=== PATIENT | female | born 1990 | race Caucasian/White ===

== ENCOUNTER 2018-01-24 13:20 | Inpatient (IN) | payer MEDICAID ==
[2018-01-24] MEDS ORDERED: Oxytocin 30 units/LR 500ML 30 U/500 ML BAG IV SCH (15:15)
[2018-01-24] MEDS: Lactated Ringer's 1,000 ML IV SCH ×3 (15:30→17:28)
[2018-01-24 15:45] LABS: BASO % 0.1 % (0.0-2.0); EOS % 0.4 % (0.0-4.0); LYMPH # 1.6 K/uL (1.0-4.3); LYMPH % 17.9 % (20.0-40.0); MEAN CORPUSCULAR HEMOGLOBIN 29.8 pg (27.0-31.0); MEAN CORPUSCULAR HGB CONC 33.5 g/dL (33.0-37.0); MEAN PLATELET VOLUME 8.3 fl (7.2-11.7); MONO # 0.6 K/uL (0.0-0.8); MONO % 6.4 % (0.0-10.0); NEUT # 6.5 K/uL (1.8-7.0); NEUT % 75.2 % (50.0-75.0); RBC 3.36 Mil/uL (3.80-5.20); RED CELL DISTRIBUTION WIDTH 13.4 % (11.5-14.5); WHITE BLOOD COUNT 8.7 K/uL (4.8-10.8)
[2018-01-24 16:20] LABS: BARBITURATES, UR NEGATIVE (NEGATIVE); BENZODIAZEPINES, UR NEGATIVE (NEGATIVE); OPIATES, UR NEGATIVE (NEGATIVE); PHENCYCLIDINE, UR NEGATIVE (NEGATIVE)
[2018-01-24] MEDS ORDERED: Fentanyl/Bupivacaine HCl 250 ML EPI ONE (17:09)
[2018-01-24] MEDS ORDERED: Lidocaine 1% Inj (20ml) ONE (17:16)
--- NOTE | 2018-01-24 18:39 | OBHP ---
Datetime: 01/24/2018 15:00 IP Adm Impression: Term, intrauterine IP Admit Plan: Admit to unit; Initiate labor protocol Pelvic Type - PN: Adequate Extremities - PN: Normal Abdomen - PN: Normal Back - PN: Normal Breast - PN: Not Done Lungs - PN: Normal Heart - PN: Normal Thyroid - PN: Not Done Neurologic - PN: Normal HEENT - PN: Normal General - PN: Normal FHR - Baseline A Provider: 130 Pool Provider: Negative Nitrazine Provider: Positive Ferning Provider: Negative EGA AdmitDate IP: 37.3 Vital Signs Provider: Reviewed; Within Normal Limits IP Indication for Induction: Not Applicable IP Chief Complaint: Uterine contractions; Suspected ruptured membranes NICHD Variability Prov Fetus A: Moderate 6-25bpm NICHD Accel Fetus A IP Provider: 15X15 FHR Category Provider Fetus A: Category I NICHD Decel Fetus A IP Provider: None Dilatation, Provider: 5 Effacement, Provider: 70 Station, Provider: -3 Genitourinary Exam: Normal DTRs - PN: Normal Datetime: 01/24/2018 14:30 Admit Comment, IP Provider: 27 yo EGA 37.3 confirmed by first US (stated per patient) presen ts with CTX and suspected ROM. She reports diffuse abdominal pain starting last night and radiating t o suprapubic area. She also reports this AM clear fluid per vagina and occasional dark bloody disharg e per vagina. Reports: FM, slight frontal headache; Denies: current vaginal bleed Last sexual activiy: 2 days ago ROS: Denies: blurred vision, CP/SOB/N/V/D/C, dysuria OB: Dr. Adames: reports short cervix; otherwise uncomplicated ([phone]) obhx: 2010 37 wks F uncomplicated; 2015 27 wks F PPROM pmhx: none famhx: none soc: Denies: smoking, etoh, illicit drugs surg: none Allergies: amoxicillin: rash: discovered greater than 5 years ago Meds: PNV, Fe Bedside US: vertex Gen: AAOx3; in acute distress with each contraction Cardiac: S1S2 no murmur Lungs: CTA bilaterally, no murmurs Abdomen: gravid, active bowel sounds CTA nontender 27 yo EGA 37.3 -Called Dr. Adames's office and office personnel confirmed [place]ET[place] of 02/11/2018; requested records. rec ords released signed. -Pt reports GBS negative -Admit to L_D for progression of labor -Labs: CBC, TS, HIV, RPR -IVF: 1 L bolus -Anesthesia consult; Pt requested epidural Case d/w Dr. Luciano Owens MD PGY1 OB Hospitalist Addendum: Pt seen and examined by me. Agree w/ above. 27 yo at 37+3 wks i n labor. On exam: Spec: frothy d/c, + nitrazine, fern neg. VE 4-5/70/-3 w/ BBOW at 3 pm. Pt admi tted to L_D. FHT reassuring. GBS positive, receiving vancomycin for prophylaxis. (ES)
--- NOTE | 2018-01-24 18:43 | OBADHP ---
Datetime: 01/24/2018 15:00 Admit Comment, IP Provider: 27 yo EGA 37.3 confirmed by first US presents with CTX and suspe cted ROM. She reports diffuse abdominal pain starting last night and radiating to suprapubic area. Sh e also reports this AM clear fluid per vagina and occasional dark bloody disharge per vagina. Reports: FM, slight frontal headache; Denies: current vaginal bleed Last sexual activiy: 2 days ago ROS: Denies: blurred vision, CP/SOB/N/V/D/C, dysuria OB: Dr. Adames: reports short cervix; otherwise uncomplicated ([phone]) obhx: 2010 37 wks F uncomplicated; 2015 27 wks F PPROM pmhx: none famhx: none soc: Denies: smoking, etoh, illicit drugs surg: none Allergies: amoxicillin: rash: discovered greater than 5 years ago Meds: PNV, Fe Bedside US: vertex Gen: AAOx3; in acute distress with each contraction Cardiac: S1S2 no murmur Lungs: CTA bilaterally, no murmurs Abdomen: gravid, active bowel sounds CTA nontender HIV: NEG RPR: NEG; HBSAG: NEG; RUBELLA: NOT IMMUNE; GC/C: NEG; 27 yo EGA 37.3 -Called Dr. Adames's office and office personnel confirmed DEMET[place] of 02/11/2018; requested records. rec ords released signed. -GBS positive per records: Amoxicillin allergy; started Vancomycin 1 gm q12hr -Admit to L_D for progression of labor -Labs: CBC, TS, HIV, RPR (records were not available on admission) -IVF: 2 L bolus -Anesthesia consult; Pt requested epidural -To offer MMR . Case d/w Dr. Luciano Owens MD PGY1 OB Hospitalist Addendum: Pt seen and examined by me. Agree w/ above. 27 yo at 37+3 wks i n labor. On exam: Spec: frothy d/c, + nitrazine, fern neg. VE 4-5/70/-3 w/ BBOW at 3 pm. Pt admi tted to L_D. FHT reassuring. GBS positive, receiving vancomycin for prophylaxis. (ES) Pelvic Type - PN: Adequate Extremities - PN: Normal Abdomen - PN: Normal Back - PN: Normal Breast - PN: Not Done Lungs - PN: Normal Heart - PN: Normal Thyroid - PN: Not Done Neurologic - PN: Normal HEENT - PN: Normal General - PN: Normal FHR - Baseline A Provider: 130 Pool Provider: Negative Nitrazine Provider: Positive Ferning Provider: Negative Vital Signs Provider: Reviewed; Within Normal Limits IP Chief Complaint: Uterine contractions; Suspected ruptured membranes NICHD Variability Prov Fetus A: Moderate 6-25bpm NICHD Accel Fetus A IP Provider: 15X15 FHR Category Provider Fetus A: Category I NICHD Decel Fetus A IP Provider: None Dilatation, Provider: 5 Effacement, Provider: 70 Station, Provider: -3 Genitourinary Exam: Normal DTRs - PN: Normal EGA AdmitDate IP: 37.3 IP Adm Impression: Term, intrauterine IP Admit Plan: Admit to unit; Initiate labor protocol
[2018-01-25] MEDS: Lactated Ringer's 1,000 ML IV SCH
[2018-01-25] MEDS ORDERED: Oxytocin 30 units/LR 500ML 30 U/500 ML BAG IV ONE (02:06)
[2018-01-25] MEDS ORDERED: Fentanyl/Bupivacaine HCl 250 ML EPI ONE (03:16)
--- NOTE | 2018-01-25 05:05 | OBDS ---
MATERNAL INFORMATION Provider Comments: Pt pushed to deliver a viable female infant through clear fluid at 0434. Apgars 9 and 9. Wt 5#11, 2580 gms. Infant placed on mother's abdomen. Cord double clamped and FOB cut the cord. Pt became extremely anxious and passed out. Pt was awakened and pt was placed on face mask o xygen. Placenta delivered spontaneously intact w/ 3vc at 0438. No tears noted. Pt started to feel better. Pt and baby tolerated the procedure well. EBL 75 mL LABOR SUMMARY EDC: 02/11/2018 00:00 No. Babies in Womb: 1 Attempted: No Labor Anesthesia: Epidural LABOR INFORMATION Reason for Induction: Not Applicable Onset of Labor: 01/17/2018 16:50 Group B Beta Strep: Positive Antibiotics # of Doses: 1 Antibiotics Time of Last Dose: 1726 Steroids Given: None Reason Steroids Not Administered: Not Applicable MEMBRANES Membranes Rupture Method: Artificial Rupture of Membranes: 01/24/2018 23:42 Amniotic Fluid Color: Clear Amniotic Fluid Amount: Small Amniotic Fluid Odor: Normal IDENTIFICATION/MEDS BABY A ID Band Number: [id number]
[2018-01-25] MEDS ORDERED: Multivitamin With Minerals Tab PO SCH ×2 (09:00)
[2018-01-25] MEDS: Multivitamin With Minerals Tab PO SCH (09:35)
[2018-01-25] MEDS ORDERED: Pneumococcal 23-Valent Vaccine IM ONE (21:00)
[2018-01-25] MEDS: Oxycodone/Acetaminophen 5/325 mg Tab PO PRN (21:52)
[2018-01-26] MEDS: Oxycodone/Acetaminophen 5/325 mg Tab PO PRN ×3 (05:41→21:34)
[2018-01-26 06:51] LABS: MEAN CELL VOLUME 90.2 fl (81.0-99.0); MEAN CORPUSCULAR HEMOGLOBIN 30.3 pg (27.0-31.0); MEAN CORPUSCULAR HGB CONC 33.6 g/dL (33.0-37.0); RBC 2.97 Mil/uL (3.80-5.20); RED CELL DISTRIBUTION WIDTH 13.4 % (11.5-14.5)
[2018-01-26] MEDS: Multivitamin With Minerals Tab PO SCH (09:09)
[2018-01-26] MEDS ORDERED: Pneumococcal 23-Valent Vaccine IM ONE (10:15)
--- NOTE | 2018-01-26 18:30 | OBPPN ---
Datetime: 01/26/2018 06:10 PP Pain Prov: Within normal limits PP Nausea Prov: Denies PP Flatus Prov: Yes PP BM Prov: No PP Breasts Prov: Not Done PP Heart Prov: Normal PP Lungs Prov: Normal PP Abdomen/Uterus Prov: Normal PP Lochia Prov: Normal PP Vulva/Perineum Prov: Not Done PP CVA Tenderness Prov: Not Done PP Extremities Prov: Normal PP C/S Incision Prov: Not Applicable PP Progress Prov: Normal PP Comments Phys Exam Prov: hgb 9 PP Impression Prov: Normal progression PP Plan Prov: Continue present management PP Progress Note Prov: Patient seen and examined this morning at bedside, no acute events overnight. Voiding and ambulating w/o any difficulties, tolerating PO intake and reports good pro gression. No BM yet but passing gas per rectum. Denies chest pain, dyspnea, nausea, vomiting, and nuria f pain. VSS, afebrile Gen: awake, alert, no acute distress Resp: cta bl CV: S1S2, RRR Abd: soft, +BS, nontender, firm fundus below umbilicus Ext: no edema, no calf tenderness, Jose's sign negative Neuro/psych: AAOx3, no gross deficits, preserved mood and affect A/P: 27 yo , s/p NVD doing well on PPD 1. -Normal progression -C/w pain management -Encourage ambulation and -Anticipated discharge 01/27/18 -Patient is aware and all the questions were answered YBecerra PGY-1 obh addendum pt seen _ examined by me. agree w/ above assessment and plan. rx Fe with resumption of bowel movement IP PP Procedures: None Vital Signs Provider PP: Reviewed; Within Normal Limits
[2018-01-26] MEDS ORDERED: Docusate-Senna 50 mg-8.6 mg Tab PO SCH (22:00)
[2018-01-27] MEDS: Oxycodone/Acetaminophen 5/325 mg Tab PO PRN ×2 (04:10→10:12)
[2018-01-27] MEDS: Multivitamin With Minerals Tab PO SCH (08:34)
[2018-01-27] MEDS ORDERED: Measles, Mumps, and Rubella 0.5 ML VIAL SC ONE (10:00)
--- NOTE | 2018-01-27 12:23 | NBDCN ---
Datetime: 01/27/2018 11:57 Nsy Prov Gen Appearance: Within Normal Limits Nsy Prov Skin: Within Normal Limits Nsy Prov Neuro: Normal Tone; Donna Nsy Prov Musculoskeletal: Within Normal Limits; Full Range of Motion; Spontaneous Movement All Extre mities; Intact Clavicles; Clavicles without Crepitus; Gluteal Folds Symmetrical; Spine Within Normal Limits; No Sacral Dimple/Cyst Nsy Prov Head: Normal Fontanelles; Normocephalic; Sutures WNL Nsy Prov EENT: Mouth Within Normal Limits; Ears Within Normal Limits; Eyes Within Normal Limits; Nos e Within Normal Limits; Face Within Normal Limits Nsy Prov Cardiovascular: Within Normal Limits; Normal Pulses Nsy Prov Respiratory: Within Normal Limits Nsy Prov GI: Within Normal Limits; Soft; Normal Liver; Non Palpable Spleen; Patent Anus Nsy Prov : Normal Female Genitalia Nsy Prov Discharge: Discharge Home Today; Healthy Term ; Vital Signs Appropriate; Bonding Funmi ropriately; Voiding and Stooling; Appropriate Weight Loss Nsy Prov Disch Comments: 37 week BG born to healthy 27 yo mom GBS partially treated. Screening labs negative and baby never ill acting. Received breast and bottle feeds with stool and void. Scree colette tests done with (-) bilirubin and CVD results. Mature appropriate mom Follow up in Weeks NB: 1 Week Disch Follow Up With: pcp Datetime: 01/24/2018 17:00 Blood Type: AB Positive
[2018-01-27 18:38] VITALS: BP 121/69; PULSE 87; RESP 20; TEMP 97; O2SAT 100
== END 2018-01-27 14:10 | disposition home or self-care (01) | DRG 373 ==
LOC: H.EROB2 13:20 → H.L&D 15:15 → H.OB/GYN 01-25 08:00
PROVIDERS: ADMIT Obstetrics & Gynecology; ATTEND Obstetrics & Gynecology
PROC: 10E0XZZ Delivery of Products of Conception, External Approach (ICD-10-PCS; principal; 2018-01-24)
PROC: 10907ZC Drainage of Amniotic Fluid, Therapeutic from Products of Conception, Via Natural or Artificial Opening (ICD-10-PCS; 2018-01-24)
PROC: 4A1HXCZ Monitoring of Products of Conception, Cardiac Rate, External Approach (ICD-10-PCS; 2018-01-24)
PROC: 3E0234Z Introduction of Serum, Toxoid and Vaccine into Muscle, Percutaneous Approach (ICD-10-PCS; 2018-01-26)
DX: O99.824 Streptococcus B carrier state complicating childbirth (principal); Z37.0 Single live birth; Z3A.37 37 weeks gestation of pregnancy; Z23 Encounter for immunization; Z88.0 Allergy status to penicillin